=== PATIENT | female | born 1965 | race Caucasian/White ===

== ENCOUNTER → 2016-11-11 | Outpatient (CLI) | payer OTHER ==
[~2016-11-11] MED LIST: /TAMS4CA PO; ALBU0.084 IN; ATOR1TAB19 PO; CIPR500T89 PO; ESCITALOPRAM PO; IBUP200C PO; LEVO500T PO; LISI10TA2 PO; LISI20TA PO; NAPR500T2 PO; PERCOCET OR; PERCOCET PO; PRIS100T PO; albuterol nebulizer INH
--- NOTE | 2016-11-11 15:49 | REPMRS ---
Patient History The patient states she had a clinical breast exam in 11/2016. Patient is postmenopausal and had first child at age 31. Family history of colorectal cancer in mother at age 48 and breast cancer in maternal cousin under age 50. Digital Woman Screen Mammo: November 11, 2016 - Exam #: [id number] Bilateral CC and MLO view(s) were taken. Technologist: Nasima Barriga Technologist Prior study comparison: October 28, 2015, digital woman screen mammo performed at [facility] to [facility]. May 02, 2009, digital bilateral screening mammo performed at [facility] to [facility]. FINDINGS: There are scattered fibroglandular densities. There has been no change in the appearance of the mammogram from the prior studies. There is a mild amount of scattered fibroglandular density which is fairly symmetric. There is no interval development of dominant mass, architectural distortion, or clustered microcalcification suggestive of malignancy. ASSESSMENT: BI-RADS/ACR category 1 mammogram. Negative. Recommendation Routine screening mammogram in 1 year (for women over age 40). This mammogram was interpreted with the aid of an FDA-approved computer-aided dectection system. Electronically Signed By: Rashel Villegas MD 11/11/16 [id number]
== END ==
LOC: M WHC 14:57
PROVIDERS: ATTEND Nurse Practitioner Family
DX: Z12.31 Encounter for screening mammogram for malignant neoplasm of breast (principal)

== ENCOUNTER → 2017-05-26 | Outpatient (CLI) | payer OTHER ==
[~2017-05-26] MED LIST changes: +CIPR-249 PO; -CIPR500T89 PO
[2017-05-26 13:27] LABS: ANION GAP 6 MEQ/L (8-16); BLOOD UREA NITROGEN 12 MG/DL (7-18); CALCIUM LEVEL 9.3 MG/DL (8.5-10.1); CARBON DIOXIDE LEVEL 30 MEQ/L (21-32); CHLORIDE LEVEL 104 MEQ/L (98-107); CREATININE FOR GFR 0.87 MG/DL (0.55-1.02); GLOMERULAR FILTRATION RATE > 60.0 (>51); GLUCOSE, FASTING 188 MG/DL (70-105); POTASSIUM SERUM 4.3 MEQ/L (3.5-5.1); SODIUM LEVEL 140 MEQ/L (136-145)
== END ==
LOC: M SMT 08:35
PROVIDERS: ATTEND Nurse Practitioner Women's Health
DX: R31.29 Other microscopic hematuria (principal)

== ENCOUNTER → 2017-07-04 | Outpatient (REF) | payer OTHER | LOC: M SMT 16:39 | PROVIDERS: ATTEND Nurse Practitioner Women's Health | DX: R31.29 Other microscopic hematuria (principal) ==

== ENCOUNTER → 2017-09-30 | Outpatient (CLI) | payer OTHER | LOC: M SMT 13:58 | DX: N20.0 Calculus of kidney (principal) | CPT/HCPCS: 74000 ==

== ENCOUNTER → 2017-11-15 | Outpatient (CLI) | payer OTHER ==
[2017-11-15 18:01] LABS: PTH INTACT 81.3 PG/ML (18.5-88.0)
[2017-11-15 18:46] LABS: ALBUMIN 3.9 GM/DL (3.2-5.2); ALKALINE PHOSPHATASE 115 U/L (45-117); ALT/SGPT 29 U/L (12-78); ANION GAP 10 MEQ/L (8-16); AST/SGOT 15 U/L (7-37); BILIRUBIN,TOTAL 0.3 MG/DL (0.2-1.0); BLOOD UREA NITROGEN 11 MG/DL (7-18); CALCIUM LEVEL 9.2 MG/DL (8.5-10.1); CARBON DIOXIDE LEVEL 30 MEQ/L (21-32); CHLORIDE LEVEL 100 MEQ/L (98-107); CREATININE FOR GFR 0.95 MG/DL (0.55-1.30); GLOMERULAR FILTRATION RATE > 60.0 (>51); GLUCOSE, FASTING 201 MG/DL (70-100); POTASSIUM SERUM 3.4 MEQ/L (3.5-5.1); SODIUM LEVEL 140 MEQ/L (136-145); TOTAL PROTEIN 6.9 GM/DL (6.4-8.2)
== END ==
LOC: M SMT 15:38
DX: N20.0 Calculus of kidney (principal)
CPT/HCPCS: 80053

== ENCOUNTER → 2018-03-06 | Outpatient (REF) | payer OTHER ==
[2018-03-06 18:33] LABS: AMORPHOUS SEDIMENT SMALL (NEGATIVE); BACTERIA, URINE AUTO NEGATIVE (NEGATIVE); MUCUS, URINE SMALL (NEGATIVE); RBC, URINE AUTO 108 /HPF (0-3); SQUAMOUS EPITHELIAL CELL UR AU 0 /HPF (0-6); WBC, URINE AUTO 39 /HPF (0-3)
== END ==
LOC: M SMT 17:02
DX: Z01.818 Encounter for other preprocedural examination (principal); N20.0 Calculus of kidney

== ENCOUNTER → 2018-03-17 | Outpatient (CLI) | payer OTHER | LOC: M EKG 14:53 | DX: Z01.818 Encounter for other preprocedural examination (principal); R03.0 Elevated blood-pressure reading, without diagnosis of hypertension; E78.00 Pure hypercholesterolemia, unspecified; E11.9 Type 2 diabetes mellitus without complications ==

== ENCOUNTER 2018-03-23 07:39 | Day surgery (SDC) | payer OTHER ==
[2018-03-23] MEDS ORDERED: LR 1,000 ML IV (08:30)
[2018-03-23 09:20] LABS: BEDSIDE GLUCOSE 162 MG/DL (70-105)
[2018-03-23] MEDS ORDERED: LIDOCAINE 2% INJ 100 MG/5 ML SDV (FOR ANES.) As Ordered (09:59)
[2018-03-23] MEDS ORDERED: KETAMINE HCL 200 MG/20 ML VIAL As Ordered (09:59)
[2018-03-23] MEDS ORDERED: MIDAZOLAM INJ 2 MG/2 ML VIAL (J2250) As Ordered (09:59)
[2018-03-23] MEDS ORDERED: ONDANSETRON 4MG/2ML VIAL (J2405) As Ordered (09:59)
[2018-03-23] MEDS ORDERED: fentaNYL 100 MCG/2 ML INJECTION (J3010) As Ordered (09:59)
[2018-03-23] MEDS ORDERED: PROPOFOL 200 MG/20 ML VIAL As Ordered (09:59)
== END 2018-03-23 12:55 | disposition home or self-care (01) ==
LOC: M SDC 07:39
DX: I11.9 Hypertensive heart disease without heart failure (principal); J45.909 Unspecified asthma, uncomplicated; E11.9 Type 2 diabetes mellitus without complications; K57.30 Diverticulosis of large intestine without perforation or abscess without bleeding; M17.0 Bilateral primary osteoarthritis of knee; M54.9 Dorsalgia, unspecified; F41.9 Anxiety disorder, unspecified; Z88.8 Allergy status to other drugs, medicaments and biological substances; Z79.899 Other long term (current) drug therapy; Z79.84 Long term (current) use of oral hypoglycemic drugs; Z87.891 Personal history of nicotine dependence; Z90.710 Acquired absence of both cervix and uterus
CPT/HCPCS: 50590

== ENCOUNTER 2018-03-24 20:03 | Observation (INO) | payer OTHER ==
[2018-03-24 20:47] LABS: BASO % 0.3 % (0.0-1.0); EOS % 0.1 % (0.0-3.0); HEMOGLOBIN 12.5 g/dl (12.0-15.5); IMMATURE GRANULOCYTE % 0.5 % (0-3.0); LYMPH # 0.6 10^3/uL (1.5-4.5); LYMPH % 4.2 % (24.0-44.0); MEAN CORPUSCULAR HEMOGLOBIN 27.8 pg (27.0-33.0); MEAN CORPUSCULAR HGB CONC 32.9 g/dl (32.0-36.5); MEAN CORPUSCULAR VOLUME 84.4 fl (80.0-96.0); MONO # 0.4 10^3/uL (0.0-0.8); MONO % 2.7 % (0.0-5.0); NEUTROPHILS # 13.2 10^3/uL (1.8-7.7); NEUTROPHILS % 92.2 % (36.0-66.0); PLATELET COUNT, AUTOMATED 322 10^3/uL (150-450); RED CELL DISTRIBUTION WIDTH 13.9 % (11.5-14.5); WHITE BLOOD COUNT 14.3 10^3/uL (4.0-10.0)
[2018-03-24 21:01] LABS: KETONE, URINE AUTO RFX NEGATIVE (NEGATIVE); MUCUS, URINE RFX SMALL (NEGATIVE); NITRITE, URINE AUTO RFX NEGATIVE (NEGATIVE); RBC, URINE AUTO RFX 19 /HPF (0-3); SQUAM EPITHELIAL CELL UR AURFX 0 /HPF (0-6)
[2018-03-24 21:03] LABS: LEUKOCYTE ESTERASE UR AUTO RFX TRACE (NEGATIVE); WBC, URINE AUTO RFX 23 /HPF (0-3)
[2018-03-24 21:06] LABS: ANION GAP 6 MEQ/L (8-16); BLOOD UREA NITROGEN 14 MG/DL (7-18); C REACTIVE PROTEIN QUANTITATIV 4.25 MG/DL (0.00-0.30); CALCIUM LEVEL 9.1 MG/DL (8.5-10.1); CARBON DIOXIDE LEVEL 31 MEQ/L (21-32); CHLORIDE LEVEL 99 MEQ/L (98-107); CREATININE FOR GFR 1.34 MG/DL (0.55-1.30); GLUCOSE, FASTING 250 MG/DL (70-100); POTASSIUM SERUM 3.8 MEQ/L (3.5-5.1); SODIUM LEVEL 136 MEQ/L (136-145)
[2018-03-24] MEDS: NS 500 ML IV (22:15)
[2018-03-24] MEDS: ONDANSETRON 4MG/2ML VIAL (J2405) IV (22:15)
[2018-03-24] MEDS: MORPHINE 4 MG/ML 1ML VIAL/SYRINGE (J2270) IV (22:15)
[2018-03-24] MEDS ORDERED: ALBUTEROL 90 MCG/ACT 8GM HFA INHALER INH (23:30)
[2018-03-25] MEDS: D5W/0.45% SODIUM CHLORIDE 1,000 ML IV ×3 (00:54→18:43)
[2018-03-25] MEDS: PERCOCET 5MG/325MG TAB PO ×2 (01:10→06:11)
[2018-03-25] MEDS: MORPHINE 4 MG/ML 1ML VIAL/SYRINGE (J2270) IV ×2 (03:53)
[2018-03-25 06:28] LABS: HEMATOCRIT 35.8 % (36.0-47.0); HEMOGLOBIN 11.9 g/dl (12.0-15.5); MEAN CORPUSCULAR HEMOGLOBIN 27.9 pg (27.0-33.0); MEAN CORPUSCULAR HGB CONC 33.2 g/dl (32.0-36.5); MEAN CORPUSCULAR VOLUME 83.8 fl (80.0-96.0); PLATELET COUNT, AUTOMATED 281 10^3/uL (150-450); RED BLOOD COUNT 4.27 10^6/uL (4.00-5.40); RED CELL DISTRIBUTION WIDTH 14.2 % (11.5-14.5); WHITE BLOOD COUNT 13.6 10^3/uL (4.0-10.0)
[2018-03-25 06:44] LABS: ANION GAP 9 MEQ/L (8-16); BLOOD UREA NITROGEN 12 MG/DL (7-18); CALCIUM LEVEL 8.3 MG/DL (8.5-10.1); CARBON DIOXIDE LEVEL 29 MEQ/L (21-32); CHLORIDE LEVEL 99 MEQ/L (98-107); CREATININE FOR GFR 1.31 MG/DL (0.55-1.30); GLOMERULAR FILTRATION RATE 45.2 (>51); GLUCOSE, FASTING 188 MG/DL (70-100); POTASSIUM SERUM 3.8 MEQ/L (3.5-5.1); SODIUM LEVEL 137 MEQ/L (136-145)
[2018-03-25 09:11] LABS: BEDSIDE GLUCOSE 177 MG/DL (70-105)
[2018-03-25] MEDS: hydroCHLOROthiazide 25 MG TAB PO (09:49)
[2018-03-25] MEDS: ASPIRIN 81 MG CHEW TABLET PO (09:50)
[2018-03-25] MEDS: HYDROMORPHONE HCL 0.5 MG/ 0.5 ML SYRINGE (J1170 PER 1) IV (09:50)
[2018-03-25] MEDS: TAMSULOSIN 0.4 MG CAP PO (09:50)
[2018-03-25] MEDS: buPROPion **XL** TABLET 150MG (WELLBUTRIN XL) PO (09:50)
[2018-03-25] MEDS: ATORVASTATIN 20 MG TAB PO (09:50)
[2018-03-25] MEDS: metFORMIN (GLUCOPHAGE) 1000 MG TABLET PO ×2 (09:51→18:42)
[2018-03-25] MEDS: LISINOPRIL 5 MG TAB PO (09:51)
[2018-03-25] MEDS: ESCITALOPRAM OXALATE 10 MG TAB (LEXAPRO) PO (09:51)
[2018-03-25 12:23] LABS: BEDSIDE GLUCOSE 168 MG/DL (70-105)
[2018-03-25] MEDS: CIPROFLOXACIN/D5W 400 MG/200 ML BAG (J0744) As Ordered (16:25)
[2018-03-25] MEDS ORDERED: ROCURONIUM BROMIDE 50 MG/5 ML VIAL As Ordered (16:26)
[2018-03-25] MEDS ORDERED: METOCLOPRAMIDE INJ 10MG/2ML VIAL (J2765) As Ordered (16:26)
[2018-03-25] MEDS ORDERED: PROPOFOL 200 MG/20 ML VIAL As Ordered (16:26)
[2018-03-25] MEDS ORDERED: NEOSTIGMINE 10 MG/10 ML VIAL (J2710) As Ordered (16:26)
[2018-03-25] MEDS ORDERED: fentaNYL 100 MCG/2 ML INJECTION (J3010) As Ordered (16:26)
[2018-03-25] MEDS ORDERED: dexameTHASONE 4 MG/ML 1ML VIAL (J1100) As Ordered (16:26)
[2018-03-25] MEDS ORDERED: LIDOCAINE 2% INJ 100 MG/5 ML SDV (FOR ANES.) As Ordered (16:26)
[2018-03-25] MEDS ORDERED: MIDAZOLAM INJ 2 MG/2 ML VIAL (J2250) As Ordered (16:26)
[2018-03-25] MEDS ORDERED: ONDANSETRON 4MG/2ML VIAL (J2405) As Ordered (16:26)
[2018-03-25] MEDS ORDERED: GLYCOPYRROLATE INJ 0.2 MG/ML 2 ML VIAL As Ordered (16:26)
[2018-03-25] MEDS ORDERED: ePHEDrine SULFATE 25 MG/5 ML(5MG/ML) SYRINGE As Ordered ×2 (16:27→17:03)
[2018-03-25] MEDS ORDERED: PHENYLephrine HCL 500 MCG/5 ML (100MCG/ML) SYRINGE (J2370) As Ordered (16:28)
[2018-03-25] MEDS: CONRAY-60 60% 50ML VIAL (Q9961) As Ordered (16:30)
[2018-03-25] MEDS ORDERED: CONRAY-60 60% 50ML VIAL (Q9961) As Ordered (17:09)
[2018-03-25] MEDS ORDERED: SEVOFLURANE INHAL SOLN 250 ML BTL As Ordered (17:22)
[2018-03-25] MEDS ORDERED: NORCO, ANEXSIA 5/325MG TABLET (HYDROcodone/ACETAMINOPHEN) PO (18:15)
[2018-03-25] MEDS ORDERED: fentaNYL 100 MCG/2 ML INJECTION (J3010) IV (18:15)
[2018-03-25] MEDS: LR 1,000 ML IV (18:15)
[2018-03-26] MEDS: CIPROFLOXACIN 500 MG TAB PO (05:55)
[2018-03-26] MEDS: hydroCHLOROthiazide 25 MG TAB PO (08:16)
[2018-03-26] MEDS: ATORVASTATIN 20 MG TAB PO (08:16)
[2018-03-26] MEDS: LISINOPRIL 5 MG TAB PO (08:16)
[2018-03-26] MEDS: metFORMIN (GLUCOPHAGE) 1000 MG TABLET PO (08:16)
[2018-03-26] MEDS: ASPIRIN 81 MG CHEW TABLET PO (08:16)
[2018-03-26] MEDS: TAMSULOSIN 0.4 MG CAP PO (08:16)
[2018-03-26] MEDS: ESCITALOPRAM OXALATE 10 MG TAB (LEXAPRO) PO (08:17)
[2018-03-26] MEDS: buPROPion **XL** TABLET 150MG (WELLBUTRIN XL) PO (08:17)
[2018-03-26] MEDS: PERCOCET 5MG/325MG TAB PO (08:20)
== END 2018-03-26 09:10 | disposition home or self-care (01) ==
LOC: M MSPAV 03-25 01:06 → M ED 20:03 → M ED INP 22:34
DX: N20.1 Calculus of ureter (principal); E88.81 Metabolic syndrome and other insulin resistance; I10 Essential (primary) hypertension; E11.9 Type 2 diabetes mellitus without complications; J45.909 Unspecified asthma, uncomplicated; F41.9 Anxiety disorder, unspecified; F32.9 Major depressive disorder, single episode, unspecified; Z79.82 Long term (current) use of aspirin; Z79.899 Other long term (current) drug therapy
CPT/HCPCS: 52352

== ENCOUNTER 2018-03-27 12:04 | Day surgery (SDC) | payer OTHER ==
[2018-03-27] MEDS: ONDANSETRON 4MG/2ML VIAL (J2405) IV ×5 (13:18)
[2018-03-27] MEDS: MORPHINE 4 MG/ML 1ML VIAL/SYRINGE (J2270) IV ×5 (13:18)
[2018-03-27 13:25] LABS: BASO % 0.3 % (0.0-1.0); EOS # 0.2 10^3/uL (0.0-0.50); HEMATOCRIT 37.2 % (36.0-47.0); HEMOGLOBIN 12.3 g/dl (12.0-15.5); IMMATURE GRANULOCYTE % 0.6 % (0-3.0); LYMPH % 6.4 % (24.0-44.0); MEAN CORPUSCULAR HEMOGLOBIN 27.8 pg (27.0-33.0); MEAN CORPUSCULAR HGB CONC 33.1 g/dl (32.0-36.5); MONO # 1.2 10^3/uL (0.0-0.8); MONO % 7.6 % (0.0-5.0); NEUTROPHILS # 12.7 10^3/uL (1.8-7.7); NEUTROPHILS % 84.1 % (36.0-66.0); PLATELET COUNT, AUTOMATED 322 10^3/uL (150-450); RED BLOOD COUNT 4.43 10^6/uL (4.00-5.40); RED CELL DISTRIBUTION WIDTH 14.4 % (11.5-14.5); WHITE BLOOD COUNT 15.1 10^3/uL (4.0-10.0)
[2018-03-27 13:38] LABS: AMORPHOUS SEDIMENT RFX SMALL (NEGATIVE); KETONE, URINE AUTO RFX NEGATIVE (NEGATIVE); LEUKOCYTE ESTERASE UR AUTO RFX NEGATIVE (NEGATIVE); MUCUS, URINE RFX SMALL (NEGATIVE); NITRITE, URINE AUTO RFX NEGATIVE (NEGATIVE); RBC, URINE AUTO RFX TNTC /HPF (0-3); SPECIFIC GRAVITY UR AUTO RFX 1.017 (1.002-1.035); SQUAM EPITHELIAL CELL UR AURFX 1 /HPF (0-6); WBC, URINE AUTO RFX 6 /HPF (0-3)
[2018-03-27 13:39] LABS: ANION GAP 10 MEQ/L (8-16); BLOOD UREA NITROGEN 18 MG/DL (7-18); CALCIUM LEVEL 9.3 MG/DL (8.5-10.1); CARBON DIOXIDE LEVEL 30 MEQ/L (21-32); CHLORIDE LEVEL 97 MEQ/L (98-107); CREATININE FOR GFR 1.22 MG/DL (0.55-1.30); GLOMERULAR FILTRATION RATE 49.1 (>51); GLUCOSE, FASTING 145 MG/DL (70-100); POTASSIUM SERUM 3.4 MEQ/L (3.5-5.1); SODIUM LEVEL 137 MEQ/L (136-145)
[2018-03-27] MEDS: KETOROLAC 30 MG/ML VIAL (J1885) IV ×5 (14:36)
[2018-03-27] MEDS ORDERED: MORPHINE 4 MG/ML 1ML VIAL/SYRINGE (J2270) IV ×5 (19:45)
[2018-03-27] MEDS ORDERED: ONDANSETRON 4MG/2ML VIAL (J2405) IV ×5 (19:45)
[2018-03-27] MEDS ORDERED: oxyCODONE 5MG TAB PO ×5 (19:45)
[2018-03-27] MEDS: D5W/0.45% SODIUM CHLORIDE 1,000 ML IV ×5 (19:58)
[2018-03-27] MEDS: cefTRIAXone SOD 1 GM in D5W MINI-BAG PLUS 50 ML IV ×5 (19:58)
[2018-03-27] MEDS ORDERED: CONRAY-60 60% 50ML VIAL (Q9961) As Ordered ×5 (23:33)
[2018-03-27] MEDS ORDERED: LIDOCAINE 2% INJ 100 MG/5 ML SDV (FOR ANES.) As Ordered ×5 (23:39)
[2018-03-27] MEDS ORDERED: PROPOFOL 200 MG/20 ML VIAL As Ordered ×5 (23:39)
[2018-03-27] MEDS ORDERED: MIDAZOLAM INJ 2 MG/2 ML VIAL (J2250) As Ordered ×5 (23:39)
[2018-03-27] MEDS ORDERED: ONDANSETRON 4MG/2ML VIAL (J2405) As Ordered ×5 (23:39)
[2018-03-27] MEDS ORDERED: dexameTHASONE 4 MG/ML 1ML VIAL (J1100) As Ordered ×5 (23:39)
[2018-03-27] MEDS ORDERED: fentaNYL 100 MCG/2 ML INJECTION (J3010) As Ordered ×5 (23:42)
[2018-03-28] MEDS ORDERED: fentaNYL 100 MCG/2 ML INJECTION (J3010) As Ordered ×5 (00:45)
[2018-03-28] MEDS: LR 1,000 ML IV ×5 (01:05)
[2018-03-28] MEDS: NORCO, ANEXSIA 5/325MG TABLET (HYDROcodone/ACETAMINOPHEN) PO ×5 (01:11)
[2018-03-28] MEDS ORDERED: NORCO, ANEXSIA 5/325MG TABLET (HYDROcodone/ACETAMINOPHEN) As Ordered ×5 (01:12)
[2018-03-28] MEDS ORDERED: ONDANSETRON 4MG/2ML VIAL (J2405) IV ×5 (01:30)
[2018-03-28] MEDS ORDERED: fentaNYL 100 MCG/2 ML INJECTION (J3010) IV ×5 (01:30)
[2018-03-28] MEDS ORDERED: D5W/0.45% SODIUM CHLORIDE 1,000 ML IV ×5 (01:45)
[2018-03-28] MEDS ORDERED: ALBUTEROL 90 MCG/ACT 8GM HFA INHALER INH ×5 (02:45)
[2018-03-28 08:31] LABS: BEDSIDE GLUCOSE 171 MG/DL (70-105)
[2018-03-28] MEDS: ATORVASTATIN 20 MG TAB PO ×5 (08:38)
[2018-03-28] MEDS: ESCITALOPRAM OXALATE 10 MG TAB (LEXAPRO) PO ×5 (08:38)
[2018-03-28] MEDS: buPROPion **XL** TABLET 150MG (WELLBUTRIN XL) PO ×5 (08:39)
[2018-03-28] MEDS: metFORMIN (GLUCOPHAGE) 1000 MG TABLET PO ×5 (08:39)
[2018-03-28] MEDS: TAMSULOSIN 0.4 MG CAP PO ×5 (08:39)
[2018-03-28] MEDS: LISINOPRIL 5 MG TAB PO ×5 (09:00)
[2018-03-28] MEDS: hydroCHLOROthiazide 25 MG TAB PO ×5 (09:00)
[2018-04-08 00:12] LABS: CA Oxalate Dihy 15 % (.); COMMENT Note: (.); Ca Ox Monohydrate 40 % (.)
== END 2018-03-28 11:35 | disposition home or self-care (01) ==
LOC: M PED 03-28 02:00 → M SDC 03-28 11:35 → M ED 12:04 → M SDC 19:22
DX: N20.1 Calculus of ureter (principal); N20.0 Calculus of kidney; E78.5 Hyperlipidemia, unspecified; I10 Essential (primary) hypertension; E11.9 Type 2 diabetes mellitus without complications; F41.9 Anxiety disorder, unspecified; Z79.899 Other long term (current) drug therapy
CPT/HCPCS: 52356

== ENCOUNTER → 2018-03-27 | Outpatient (REF) | payer OTHER ==
[~2018-03-27] MED LIST changes: -/TAMS4CA PO; -ALBU0.084 IN; -ATOR1TAB19 PO; -CIPR-249 PO; +CONRAY-60 60% 50ML VIAL (Q9961) XX; -ESCITALOPRAM PO; -IBUP200C PO; -LEVO500T PO; -LISI10TA2 PO; -LISI20TA PO; -NAPR500T2 PO; -PERCOCET OR; -PERCOCET PO; -PRIS100T PO; -albuterol nebulizer INH
[2018-04-07 14:18] LABS: Ca Ox Monohydrate 42 % (.)
== END ==
LOC: M SMT 12:50
DX: N20.0 Calculus of kidney (principal)
CPT/HCPCS: 82360

== ENCOUNTER 2019-02-01 08:39 | Day surgery (SDC) | payer OTHER ==
[~2019-02-01] VITALS: Ht 167.6 cm; Wt 119.3 kg
[~2019-02-01 08:39] MED LIST changes: +ALBU0.084 IN; +ASPI81CH49 PO; +ASPI81TA26 PO; +ATOR1TAB19 PO; +ATOR1TAB21 PO; +BUPR300T34 PO; +CIPR-249 PO; +CIPR1TAB20 PO; -CONRAY-60 60% 50ML VIAL (Q9961) XX; +ESCI10TA2 PO; +ESCITALOPRAM PO; +FLOM0.4C39 PO; +HYDR50TAB PO; +IBUP200C PO; +LEVO500T PO; +LISI-542 PO; +LISI10TA2 PO; +LISI20TA PO; +METF10004 PO; +NAPR500T2 PO; +NS 1,000 ML IV ONE; +OXYC-517 PO; +OXYC1TAB23 OR; +OXYC1TAB23 PO; +PERC10TA26 PO; +PERCOCET PO; +POTA75TA2 PO; +PRIS100T PO; +PROAAER10 INH; +ZANT300T9 PO; +albuterol nebulizer INH
[2019-02-01] MEDS ORDERED: PROPOFOL 200 MG/20 ML VIAL As Ordered ONE (09:04)
[2019-02-01] MEDS ORDERED: LIDOCAINE 2% INJ 100 MG/5 ML SDV (FOR ANES.) As Ordered ONE (09:05)
[2019-02-01] MEDS ORDERED: fentaNYL 100 MCG/2 ML INJECTION (J3010) As Ordered ONE (09:05)
--- NOTE | 2019-02-01 10:07 | ROOR ---
Patient Name: Charlotte Muhammad Procedure Date: 02/01/2019 9:50 AM Date of : 1965 Age: 53 Room: [facility] Gender: Female Note Status: Finalized Procedure: Upper GI endoscopy Indications: Follow-up of esophageal reflux Providers: Parish Webster Jr, MD Referring MD: NAKITA CERRATO Requesting Provider: Medicines: Propofol per Anesthesia Complications: No immediate complications. Procedure: Pre-Anesthesia Assessment: - Prior to the procedure, a History and Physical was performed, and patient medications and allergies were reviewed. The patient is competent. The risks and benefits of the procedure and the sedation options and risks were discussed with the patient. All questions were answered and informed consent was obtained. Patient identification and proposed procedure were verified by the physician and the nurse in the pre-procedure area and in the procedure room. Mental Status Examination: alert and oriented. Airway Examination: normal oropharyngeal airway and neck mobility. Respiratory Examination: clear to auscultation. CV Examination: normal. ASA Grade Assessment: II - A patient with mild systemic disease. After reviewing the risks and benefits, the patient was deemed in satisfactory condition to undergo the procedure. The anesthesia plan was to use moderate sedation / analgesia (conscious sedation). Immediately prior to administration of medications, the patient was re-assessed for adequacy to receive sedatives. The heart rate, respiratory rate, oxygen saturations, blood pressure, adequacy of pulmonary ventilation, and response to care were monitored throughout the procedure. The physical status of the patient was re-assessed after the procedure. The Endoscope was introduced through the mouth, and advanced to the second part of duodenum. The upper GI endoscopy was accomplished without difficulty. The patient tolerated the procedure well. Findings: The upper third of the esophagus, middle third of the esophagus and lower third of the esophagus were normal. Diffuse mildly erythematous mucosa was found in the prepyloric region of the stomach. Biopsies were taken with a cold forceps for histology. Localized moderate inflammation characterized by congestion (edema), erythema and shallow ulcerations was found in the cardia. The duodenal bulb, first portion of the duodenum and second portion of the duodenum were normal. Impression: - Normal upper third of esophagus, middle third of esophagus and lower third of esophagus. - Erythematous mucosa in the prepyloric region of the stomach. Biopsied. - Bile gastritis. - Normal duodenal bulb, first portion of the duodenum and second portion of the duodenum. Recommendation: - Discharge patient to home (ambulatory). - Return to my office in 3 weeks. Pairsh Webster MD Parish Webster Jr, MD 02/01/2019 10:07:01 AM Electronically signed by Parish Webster Jr, MD Number of Addenda: 0 Note Initiated On: 02/01/2019 9:50 AM Estimated Blood Loss: Estimated blood loss: none.
[2019-02-01] MEDS ORDERED: GLYCOPYRROLATE INJ 0.2 MG/ML 2 ML VIAL As Ordered ONE (10:19)
--- NOTE | 2019-02-01 10:35 | ROOR ---
Patient Name: Charlotte Muhammad Procedure Date: 02/01/2019 9:50 AM Date of : 1965 Age: 53 Room: [facility] Gender: Female Note Status: Finalized Procedure: Colonoscopy Indications: Screening in patient at increased risk: Family history of 1st-degree relative with colorectal cancer Providers: Parish Webster Jr, MD Referring MD: NAKITA CERRATO Requesting Provider: Medicines: Propofol per Anesthesia Complications: No immediate complications. Procedure: Pre-Anesthesia Assessment: - Prior to the procedure, a History and Physical was performed, and patient medications and allergies were reviewed. The patient is competent. The risks and benefits of the procedure and the sedation options and risks were discussed with the patient. All questions were answered and informed consent was obtained. Patient identification and proposed procedure were verified by the physician and the nurse in the pre-procedure area and in the procedure room. Mental Status Examination: alert and oriented. Airway Examination: normal oropharyngeal airway and neck mobility. Respiratory Examination: clear to auscultation. CV Examination: normal. ASA Grade Assessment: II - A patient with mild systemic disease. After reviewing the risks and benefits, the patient was deemed in satisfactory condition to undergo the procedure. The anesthesia plan was to use moderate sedation / analgesia (conscious sedation). Immediately prior to administration of medications, the patient was re-assessed for adequacy to receive sedatives. The heart rate, respiratory rate, oxygen saturations, blood pressure, adequacy of pulmonary ventilation, and response to care were monitored throughout the procedure. The physical status of the patient was re-assessed after the procedure. The Colonoscope was introduced through the anus and advanced to the cecum, identified by appendiceal orifice and ileocecal valve. The colonoscopy was performed without difficulty. The patient tolerated the procedure well. The quality of the bowel preparation was adequate. Findings: The rectum, recto-sigmoid colon, cecum, appendiceal orifice and ileocecal valve appeared normal. Scattered small and large-mouthed diverticula were found in the descending colon, transverse colon and ascending colon. Multiple small and large-mouthed diverticula were found in the sigmoid colon. Impression: - The rectum, recto-sigmoid colon, cecum, appendiceal orifice and ileocecal valve are normal. - Diverticulosis in the descending colon, in the transverse colon and in the ascending colon. - Diverticulosis in the sigmoid colon. - No specimens collected. Recommendation: - Discharge patient to home (ambulatory). - Repeat colonoscopy in 5-10 years for screening purposes. Parish Webster MD Parish Webster Jr, MD 02/01/2019 10:35:05 AM Electronically signed by Parish Webster Jr, MD Number of Addenda: 0 Note Initiated On: 02/01/2019 9:50 AM Estimated Blood Loss: Estimated blood loss: none.
[2019-02-01 10:55] VITALS: BP 136/83
== END 2019-02-01 11:09 | disposition home or self-care (01) ==
LOC: M OPP 08:39
PROVIDERS: ATTEND Surgery
DX: K57.30 Diverticulosis of large intestine without perforation or abscess without bleeding (principal); K21.9 Gastro-esophageal reflux disease without esophagitis; K29.60 Other gastritis without bleeding; K31.89 Other diseases of stomach and duodenum; Z12.11 Encounter for screening for malignant neoplasm of colon; Z80.0 Family history of malignant neoplasm of digestive organs
CPT/HCPCS: 43239; 45378; 88305; J3010

== ENCOUNTER 2019-03-07 10:45 | Emergency (ER) | payer OTHER ==
[~2019-03-07] VITALS: Ht 167.6 cm; Wt 120.5 kg
[~2019-03-07 10:45] MED LIST changes: -NS 1,000 ML IV ONE
[2019-03-07] MEDS ORDERED: CARA1TAB6 PO (10:59)
[2019-03-07 12:04] LABS: BASO # 0.1 10^3/uL (0.0-0.2); BASO % 0.6 % (0.0-1.0); EOS # 0.3 10^3/uL (0.0-0.50); EOS % 3.2 % (0.0-3.0); HEMATOCRIT 36.8 % (36.0-47.0); HEMOGLOBIN 11.5 g/dl (12.0-15.5); LYMPH # 1.8 10^3/uL (1.5-4.5); LYMPH % 22.4 % (24.0-44.0); MEAN CORPUSCULAR HGB CONC 31.3 g/dl (32.0-36.5); MEAN CORPUSCULAR VOLUME 86.4 fl (80.0-96.0); MONO # 0.5 10^3/uL (0.0-0.8); MONO % 6.3 % (0.0-5.0); NEUTROPHILS # 5.2 10^3/uL (1.8-7.7); PLATELET COUNT, AUTOMATED 309 10^3/uL (150-450); RED BLOOD COUNT 4.26 10^6/uL (4.00-5.40); WHITE BLOOD COUNT 7.8 10^3/uL (4.0-10.0)
[2019-03-07] MEDS ORDERED: ASPIRIN 81 MG CHEW TABLET PO ONE (12:15)
[2019-03-07] MEDS ORDERED: IPRATROPIUM 0.5MG/ALBUTEROL 2.5MG INH SOL UD 3ML (DUONEB)(J7620) NEB ONE (12:15)
--- NOTE | 2019-03-07 13:06 | REP ---
Chest two views HISTORY: Cough Comparison: 08/22/1970 The lungs are clear. The heart is normal in size. The pulmonary vasculature is normal in appearance. The bony structure is intact. IMPRESSION: No acute disease. Electronically Signed by Connor Carlton MD 03/07/2019 12:57 P
[2019-03-07 13:08] LABS: VENOUS BASE EXCESS 1.4 (-2.0-2.0); VENOUS HCO3 27.1 MEQ/L (23.0-27.0); VENOUS O2 SATURATION 92.7 % (60.0-80.0); VENOUS PARTIAL PRESSURE CO2 46.9 mmHg (38.0-50.0); VENOUS PARTIAL PRESSURE O2 65.3 mmHg (30.0-50.0); VENOUS PH 7.379 UNITS (7.330-7.430); VENOUS STANDARD HCO3 25.6 MEQ/L; VENOUS TOTAL CO2 28.5 MEQ/L (24.0-28.0)
[2019-03-07 13:09] LABS: ALBUMIN 3.6 GM/DL (3.2-5.2); ALT/SGPT 30 U/L (12-78); BILIRUBIN,TOTAL 0.3 MG/DL (0.2-1.0); BLOOD UREA NITROGEN 14 MG/DL (7-18); CALCIUM LEVEL 9.1 MG/DL (8.5-10.1); CARBON DIOXIDE LEVEL 28 MEQ/L (21-32); CHLORIDE LEVEL 109 MEQ/L (98-107); CREATININE FOR GFR 0.86 MG/DL (0.55-1.30); GLOMERULAR FILTRATION RATE > 60.0 (>51); GLUCOSE, FASTING 90 MG/DL (70-100); SODIUM LEVEL 143 MEQ/L (136-145); TOTAL PROTEIN 6.6 GM/DL (6.4-8.2)
[2019-03-07 13:22] LABS: INR 0.99; PROTHROMBIN TIME 13.2 SECONDS (12.1-14.4)
[2019-03-07 13:25] LABS: D-DIMER QUANT 410.67 ng/ml (<500)
[2019-03-07 13:47] LABS: ALBUMIN 3.8 GM/DL (3.2-5.2); ALT/SGPT 35 U/L (12-78); BILIRUBIN,DIRECT < 0.1 MG/DL (0.0-0.2); BILIRUBIN,TOTAL 0.3 MG/DL (0.2-1.0); CPK CREATINE PHOSPHOKINASE 73 U/L (26-192); MB/CK RELATIVE INDEX 3.01 (< OR =4); NT-PRO BNP 222 PG/ML (<125); TOTAL PROTEIN 6.6 GM/DL (6.4-8.2); TROPONIN I 0.02 NG/ML (< 0.10)
[2019-03-07 14:30] VITALS: BP 127/59
--- NOTE | 2019-03-07 20:07 | ECGEPIP ---
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
== END 2019-03-07 14:42 | disposition home or self-care (01) ==
LOC: M ED 10:45
DX: I10 Essential (primary) hypertension (principal); Z79.899 Other long term (current) drug therapy; Z88.8 Allergy status to other drugs, medicaments and biological substances; Z87.891 Personal history of nicotine dependence

== ENCOUNTER → 2019-03-09 | Outpatient (REF) | payer OTHER ==
[~2019-03-09] MED LIST changes: +CARA1TAB6 PO
[2019-03-09 15:05] LABS: CREATININE, URINE 74.8 MG/DL; MALB URINE SIEMENS 29.2 MG/L
== END ==
LOC: M LAB REF 13:58
PROVIDERS: ATTEND Nurse Practitioner Family
DX: N39.9 Disorder of urinary system, unspecified (principal)

== ENCOUNTER → 2019-03-12 | Outpatient (CLI) | payer OTHER ==
--- NOTE | 2019-03-12 11:09 | REP ---
Right upper quadrant sonography: History: Right upper quadrant pain. Comparison CT study March 27, 2018. Sonographic findings: Scanning through the right upper quadrant of the abdomen demonstrates a large calculus in the neck of the gallbladder. No tenderness to scanning is seen. There is sludge in the gallbladder lumen as well. Gallbladder wall is not visibly thickened. These findings correlate with the CT findings from March of 2018. Common bile duct is normal measuring 0.5 cm in greatest diameter. The liver is very echodense consistent with significant fatty infiltration. It is poorly penetrated and quite suboptimally visualized as a result. Limited views of the pancreas show no abnormality. Scan quality is inhibited by patient body habitus as well. No right renal abnormality is observed. The right kidney measures 10.7 x 5.3 x 3.9 cm. Normal caliber aorta is seen. Impression: Fatty infiltration of the liver. Poor visualization of the liver parenchyma as a result. Cholelithiasis with a large stone in the neck of the gallbladder and mildly dilated gallbladder. Sludge. Normal CBD. Electronically Signed by Adrien Villegas MD 03/12/2019 03:40 P
== END ==
LOC: M RAD 07:48
PROVIDERS: ATTEND Nurse Practitioner
DX: K76.0 Fatty (change of) liver, not elsewhere classified (principal); K80.20 Calculus of gallbladder without cholecystitis without obstruction

== ENCOUNTER → 2019-08-22 | Outpatient (CLI) | payer OTHER ==
[~2019-08-22] MED LIST changes: +BUSP10TA PO; +CLOP75TA2 PO; +LISI10TA4 PO; +NITR4TASL SL
[2019-08-25 00:16] LABS: Lyme Disease IgG/IgM Antibodie <0.91 ISR (0.00-0.90); Lyme Disease IgM Ab Quantitati <0.80 index (0.00-0.79)
== END ==
LOC: M LAB 14:48
PROVIDERS: ATTEND Internal Medicine Cardiovascular Disease
DX: I49.9 Cardiac arrhythmia, unspecified (principal)

== ENCOUNTER 2019-12-04 06:20 | Emergency (ER) | payer OTHER ==
[~2019-12-04] VITALS: Ht 167.6 cm; Wt 119.1 kg
[~2019-12-04 06:20] MED LIST changes: -BUPR300T34 PO; +BUPR300T92 PO
[2019-12-04] MEDS ORDERED: ACETAMINOPHEN 500 MG TAB PO ONE (07:15)
[2019-12-04] MEDS ORDERED: LIDOCAINE 5% (LIDODERM) PATCH TD ONE (07:15)
[2019-12-04 07:17] LABS: BASO # 0.1 10^3/uL (0.0-0.2); BASO % 0.6 % (0.0-1.0); EOS # 0.2 10^3/uL (0.0-0.5); EOS % 2.7 % (0.0-3.0); HEMATOCRIT 40.5 % (36.0-47.0); HEMOGLOBIN 12.7 g/dl (12.0-15.5); LYMPH # 1.6 10^3/uL (1.5-5.0); LYMPH % 20.6 % (24.0-44.0); MEAN CORPUSCULAR HGB CONC 31.4 g/dl (32.0-36.5); MEAN CORPUSCULAR VOLUME 86.2 fl (80.0-96.0); MONO # 0.5 10^3/uL (0.0-0.8); MONO % 6.1 % (0.0-5.0); NEUTROPHILS # 5.5 10^3/uL (1.5-8.5); NEUTROPHILS % 69.6 % (36.0-66.0); PLATELET COUNT, AUTOMATED 318 10^3/uL (150-450); WHITE BLOOD COUNT 7.9 10^3/uL (4.0-10.0)
[2019-12-04 07:31] LABS: CK-MB VALUE MASS < 1.0 NG/ML (<3.6); CPK CREATINE PHOSPHOKINASE 51 U/L (26-192); MB/CK RELATIVE INDEX 1.96 (< OR =4); TROPONIN I < 0.02 NG/ML (< 0.10)
--- NOTE | 2019-12-04 07:56 | REP ---
Chest x-ray: Two views. History: Cardiac history. The left back pain. Comparison study: March 07, 2019. Findings: The lungs are symmetrically aerated and clear. The pleural angles are sharp. Heart is not enlarged. Coronary artery stent material is visible overlying the heart. There are degenerative changes in the thoracic spine. Pulmonary vasculature is not increased. No infiltrate is seen. Impression: Status post coronary artery stenting. Degenerative changes in the thoracic spine. No active cardiopulmonary disease. Electronically Signed by Adrien Villegas MD 12/04/2019 07:47 A
[2019-12-04] MEDS ORDERED: ISOVUE-370 76% 100ML VIAL (Q9967) As Ordered ONE (08:27)
--- NOTE | 2019-12-04 09:01 | REP ---
CT PULMONARY ANGIOGRAM: With IV contrast. HISTORY: Pleuritic left upper back pain. COMPARISON STUDIES: No comparison chest CT. CONTRAST DOSE: 75 mL of Isovue [address] TECHNIQUE: Helical scanning is acquired and overlapping 1.5 mm and contiguous 3 mm axial images are reformatted. In addition, maximum intensity projection and multiplanar re-formation images are generated in sagittal and coronal imaging projections. CT PULMONARY ANGIOGRAPHIC FINDINGS: There is good opacification of the pulmonary arterial tree. There is no filling defect or vessel cutoff in the pulmonary arterial tree to suggest pulmonary embolism. There is no evidence of aortic aneurysm or dissection. There is some vascular calcification in the aortic arch and great vessel origins. No pleural or pericardial effusion is seen. There is no evidence of hilar or mediastinal mass or adenopathy. There is fairly prominent discogenic spurring in the thoracic spine. No bony destructive lesion is appreciated. There is coronary artery stent material visible. Fatty infiltration of the liver is seen and calcific material is noted in the gallbladder at the bottom edge of the imaging field of view suggesting cholelithiasis. This is unchanged from comparison abdomen CT study March 27, 2018. The visualized upper abdominal structures are otherwise unremarkable. No adrenal lesion is seen. There is no evidence of pulmonary infiltrate, significant atelectasis, pulmonary mass, or significant nodule. IMPRESSION: No CT evidence of pulmonary embolus. Status post coronary artery stent placement. Cholelithiasis. Fatty infiltration of the liver. Mild vascular calcification. Otherwise no acute disease. Electronically Signed by Adrien Villegas MD 12/04/2019 05:53 P
[2019-12-04] MEDS ORDERED: LIDO5DIS41 TOP (09:12)
[2019-12-04 09:24] VITALS: BP 133/65
[2019-12-04] MEDS ORDERED: **NOTE PATIENT COMMENT** MISC XX SCH (21:00)
--- NOTE | 2019-12-06 06:09 | ECGEPIP ---
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
== END 2019-12-04 09:35 | disposition home or self-care (01) ==
LOC: M ED 06:20
DX: M51.34 Other intervertebral disc degeneration, thoracic region (principal); R00.1 Bradycardia, unspecified; K76.0 Fatty (change of) liver, not elsewhere classified; K80.20 Calculus of gallbladder without cholecystitis without obstruction; E11.9 Type 2 diabetes mellitus without complications; I11.9 Hypertensive heart disease without heart failure; E78.5 Hyperlipidemia, unspecified; J45.909 Unspecified asthma, uncomplicated; F41.9 Anxiety disorder, unspecified; F33.9 Major depressive disorder, recurrent, unspecified; Z95.5 Presence of coronary angioplasty implant and graft; Z88.8 Allergy status to other drugs, medicaments and biological substances; Z79.82 Long term (current) use of aspirin; Z79.84 Long term (current) use of oral hypoglycemic drugs; Z79.899 Other long term (current) drug therapy
CPT/HCPCS: 36415; 71046; 71275; 80047; 82550; 82553; 84484; 85025; 85379; 93005; 99284; Q9967

== ENCOUNTER → 2019-12-18 | Outpatient (REF) | payer OTHER ==
[~2019-12-18] MED LIST changes: +LIDO5DIS41 TOP
[2019-12-18 14:24] LABS: BASO # 0.1 10^3/uL (0.0-0.2); BASO % 0.8 % (0.0-1.0); EOS # 0.2 10^3/uL (0.0-0.5); EOS % 2.5 % (0.0-3.0); HEMATOCRIT 42.9 % (36.0-47.0); HEMOGLOBIN 13.2 g/dl (12.0-15.5); LYMPH # 1.5 10^3/uL (1.5-5.0); LYMPH % 21.1 % (24.0-44.0); MEAN CORPUSCULAR HEMOGLOBIN 26.5 pg (27.0-33.0); MEAN CORPUSCULAR HGB CONC 30.8 g/dl (32.0-36.5); MEAN CORPUSCULAR VOLUME 86.1 fl (80.0-96.0); MONO # 0.4 10^3/uL (0.0-0.8); NEUTROPHILS % 70.3 % (36.0-66.0); PLATELET COUNT, AUTOMATED 328 10^3/uL (150-450); RED BLOOD COUNT 4.98 10^6/uL (4.00-5.40); WHITE BLOOD COUNT 7.1 10^3/uL (4.0-10.0)
[2019-12-18 14:39] LABS: HEMOGLOBIN A1c 7.9 %
[2019-12-18 14:54] LABS: ALT/SGPT 33 U/L (12-78); BILIRUBIN,TOTAL 0.3 MG/DL (0.2-1.0); BLOOD UREA NITROGEN 16 MG/DL (7-18); CALCIUM LEVEL 10.6 MG/DL (8.5-10.1); CARBON DIOXIDE LEVEL 28 MEQ/L (21-32); CHLORIDE LEVEL 104 MEQ/L (98-107); CREATININE FOR GFR 0.93 MG/DL (0.55-1.30); GLOMERULAR FILTRATION RATE > 60.0 (>51); GLUCOSE, FASTING 230 MG/DL (70-100); POTASSIUM SERUM 4.1 MEQ/L (3.5-5.1); RHEUMATOID FACTOR QUANT < 10.0 IU/ML (<15.0); SODIUM LEVEL 138 MEQ/L (136-145); TOTAL PROTEIN 7.4 GM/DL (6.4-8.2)
[2019-12-18 15:03] LABS: FOLATE 12.8 NG/ML; VITAMIN B12 LEVEL 288 PG/ML
[2019-12-18 15:05] LABS: ERYTHROCYTE SEDIMENTATION RATE 13 mm/hr (0-30)
[2019-12-20 14:24] LABS: ALBUMIN % 58.1 % (55.8-66.1); ALPHA-1-GLOBULIN % 4.6 % (2.9-4.9); ALPHA-1-GLOBULINS 0.34 GM/DL (0.17-0.41); ALPHA-2-GLOBULINS 0.81 GM/DL (0.42-0.99); ALPHA-2-GLOBULINS % 10.9 % (7.1-11.8); BETA-1-GLOBULINS 0.58 GM/DL (0.28-0.60); BETA-1-GLOBULINS % 7.8 % (4.7-7.2); BETA-2-GLOBULINS 0.46 GM/DL (0.19-0.55); BETA-2-GLOBULINS % 6.2 % (3.2-6.5); GAMMA GLOBULIN % 12.4 % (11.1-18.8); GAMMA GLOBULINS 0.92 GM/DL (0.65-1.58)
== END ==
LOC: M LABNEURO 12:50
PROVIDERS: ATTEND Psychiatry & Neurology Neurology
DX: G62.9 Polyneuropathy, unspecified (principal)

== ENCOUNTER → 2020-01-04 | Outpatient (CLI) | payer OTHER ==
--- NOTE | 2020-01-04 15:28 | REP ---
MRI cervical spine without contrast: History: Pain in the neck and scapular region, numbness going down the left arm. Comparison cervical spine radiographs December 10, 2019. Technique: Sagittal and axial T1 and T2-weighted scans are acquired in the usual fashion with and without fat saturation. Sequences include spin echo, turbo spin-echo, and STIR imaging sequences. MRI findings: There is straightening of the normal cervical lordosis. Cervical vertebral body heights are preserved. No bony destructive lesion is seen. Large anteriorly projecting discogenic osteophytes are formed at the C4-5, C 5-6, and C6-7 disc levels. Particularly at C4-5 as seen on the radiographs. There is no evidence of marrow edema or ligament disruption. The cervical cord is normal in coarse, caliber and signal intensity on T1 and T2-weighted scans. Craniocervical junction is unremarkable. Axial and sagittal images of C2-3 demonstrate minimal central disc bulging. No other finding. At C3-4, there is mild disc narrowing and diffuse disc bulging effaces the ventral subarachnoid space. Minimal uncovertebral spurring is present on the right. Canal size is borderline. At the C4-5, there is mild diffuse disc bulging. The canal is borderline in size with midline AP dimension of the thecal sac 10 mm at the C4-5 level. Neural foramina appear to be adequate. At C5-6, there is mild degenerative disc narrowing. There is a left posterior disc protrusion with associated osteophyte formation. This flattens the left ventral margin of the cord. The remainder of the disc margin shows some diffuse bulging and there is mild central canal stenosis as a result of these factors. Midline AP dimension of the thecal sac at C5-6 is 9.3 mm. The CSF signal is effaced from the thecal sac on T2-weighted scans at this level. There is mild left-sided uncovertebral spurring and foraminal narrowing. At C6-C7, there is a right posterior small focal disc protrusion seen on axial T2-weighted images. No foraminal narrowing is seen. Canal size is borderline. At C7-T1, there is a left posterior moderate-sized focal disc protrusion effacing the left ventral lateral margin of the cord and with associated osteophyte formation, producing neural foraminal narrowing on the left. At T1-T2, there is no abnormality. At T2-T3, there is left-sided ligamentum flavum and facet hypertrophy effacing the dorsal lateral aspect of the thecal sac. No cord compression is seen. Impression: The dominant abnormalities in the cervical spine are a left posterior and left foraminal disc protrusion at C7-T1, a left posterior and foraminal disc protrusion at C5-6, and there very tiny right paracentral focal disc protrusion at C6-7. Canal size is borderline. Electronically Signed by Adrien Villegas MD 01/04/2020 04:11 P
--- NOTE | 2020-01-04 15:32 | REP ---
MRI thoracic spine without contrast: History: Neck pain and scapular area pain, numbness going down the left arm. Comparison is made with CT images of the chest from December 04, 2019. Technique: Sagittal and axial T1 and T2-weighted scans are acquired in the usual fashion with and without fat saturation. Sequences include spin echo, turbo spin-echo, and STIR imaging sequences. MRI findings: Thoracic vertebral body heights are preserved. Cortical and medullary bone signal intensity are normal. No fracture or collapse is seen. No paravertebral soft tissue lesion is seen. There is diffuse degenerative disc disease with multiple levels of Schmorl's nodes. The MR and CT images demonstrate fairly exuberant anterior discogenic osteophyte formation in the mid and lower thoracic spine vertically on the right. Exuberant discogenic spurring is seen in the cervical spine on C-spine series. On the left side, at the T2-3 facet joint level there is asymmetric osteoarthritis and spurring of the facet joints. This impinges on the dorsal lateral aspect of the thecal sac at the T2-3 level and CSF fluid signal intensity is effaced from the thecal sac at this level consistent with mild central canal stenosis. There is right posterior disc bulging at this level. No abnormal cord signal is seen. There is a right posterior disc protrusion at the T5-6 disc level which flattens the right ventral lateral margin of the thoracic cord. This is partially calcified and visible on reconstructed CT images. There is bilateral hypertrophic facet change at the T11-12 level subtly indenting the dorsal lateral margin of the thecal sac bilaterally. No cord compression is seen. Minimal disc bulging is seen at this level. No extra vertebral abnormality. Impression: 1. There is a right posterior disc protrusion at T5-6. 2. 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 3. Bilateral facet hypertrophy indents the dorsolateral thecal sac bilaterally at T11-12. Electronically Signed by Adrien Villegas MD 01/04/2020 04:11 P
== END ==
LOC: M PLARAD 13:21
PROVIDERS: ATTEND Psychiatry & Neurology Neurology
DX: M50.23 Other cervical disc displacement, cervicothoracic region (principal); R20.2 Paresthesia of skin; M50.222 Other cervical disc displacement at C5-C6 level; M50.223 Other cervical disc displacement at C6-C7 level; M51.24 Other intervertebral disc displacement, thoracic region; M51.34 Other intervertebral disc degeneration, thoracic region

== ENCOUNTER 2020-10-01 14:13 | Emergency (ER) | payer OTHER ==
[~2020-10-01] VITALS: Ht 167.6 cm; Wt 112.2 kg
[~2020-10-01 14:13] MED LIST changes: +ESCI10TA16 PO; -ESCI10TA2 PO
[2020-10-01] MEDS ORDERED: TIZA4CAP PO (14:28)
[2020-10-01] MEDS ORDERED: FARX1TAB3 PO (14:28)
[2020-10-01 15:30] LABS: BASO # 0.1 10^3/uL (0.0-0.2); BASO % 0.7 % (0.0-1.0); EOS # 0.3 10^3/uL (0.0-0.5); EOS % 3.5 % (0.0-3.0); HEMATOCRIT 41.9 % (36.0-47.0); HEMOGLOBIN 12.7 g/dl (12.0-15.5); LYMPH # 1.7 10^3/uL (1.5-5.0); LYMPH % 20.9 % (24.0-44.0); MEAN CORPUSCULAR HGB CONC 30.3 g/dl (32.0-36.5); MEAN CORPUSCULAR VOLUME 85.7 fl (80.0-96.0); MONO # 0.5 10^3/uL (0.0-0.8); MONO % 5.8 % (0.0-5.0); NEUTROPHILS # 5.7 10^3/uL (1.5-8.5); NEUTROPHILS % 68.5 % (36.0-66.0); PLATELET COUNT, AUTOMATED 292 10^3/uL (150-450); RED BLOOD COUNT 4.89 10^6/uL (4.00-5.40); WHITE BLOOD COUNT 8.3 10^3/uL (4.0-10.0)
--- NOTE | 2020-10-01 15:39 | REP ---
INDICATION: CHEST PAIN COMPARISON: 12/04/2019 TECHNIQUE: Portable AP view of the chest FINDINGS: The mediastinum and cardiac silhouette are stable and within normal limits for portable technique. The lung higgins are clear without acute consolidation, effusion, or pneumothorax. Skeletal structures are intact. IMPRESSION: No acute cardiopulmonary process appreciated. <Electronically signed by Jg Horta > 10/01/20 [id number]
[2020-10-01 15:42] LABS: INR 0.97; PARTIAL THROMBOPLASTIN TIME 27.9 SECONDS (24.2-38.5); PROTHROMBIN TIME 13.1 SECONDS (12.5-14.3)
[2020-10-01 16:10] LABS: ALBUMIN 3.6 GM/DL (3.2-5.2); ALT/SGPT 22 U/L (12-78); BILIRUBIN,DIRECT 0.1 MG/DL (0.0-0.2); BILIRUBIN,TOTAL 0.4 MG/DL (0.2-1.0); BLOOD UREA NITROGEN 12 MG/DL (7-18); CALCIUM LEVEL 9.8 MG/DL (8.5-10.1); CARBON DIOXIDE LEVEL 30 MEQ/L (21-32); CHLORIDE LEVEL 106 MEQ/L (98-107); CK-MB VALUE MASS 1.2 NG/ML (<3.6); CPK CREATINE PHOSPHOKINASE 51 U/L (26-192); CREATININE FOR GFR 0.87 MG/DL (0.55-1.30); GLOMERULAR FILTRATION RATE > 60.0 (>51); GLUCOSE, FASTING 101 MG/DL (70-100); LIPASE 201 U/L (73-393); MB/CK RELATIVE INDEX 2.35 (< OR =4); NT-PRO BNP 105 PG/ML (<125); POTASSIUM SERUM 3.9 MEQ/L (3.5-5.1); SODIUM LEVEL 139 MEQ/L (136-145); TOTAL PROTEIN 6.8 GM/DL (6.4-8.2); TROPONIN I < 0.02 NG/ML (< 0.10)
[2020-10-01 21:45] LABS: CK-MB VALUE MASS 1.2 NG/ML (<3.6); CPK CREATINE PHOSPHOKINASE 44 U/L (26-192); MB/CK RELATIVE INDEX 2.73 (< OR =4); TROPONIN I < 0.02 NG/ML (< 0.10)
--- NOTE | 2020-10-01 21:56 | ED PDOC ---
Post-Departure Follow-Up I received this patient's care from Dr. Polanco. The plan at the time of s/o was t o f/u on her repeat trop and EKG. GERARDO REYES MD Oct 01, 2020 21:56
[2020-10-01 22:18] VITALS: BP 119/55
--- NOTE | 2020-10-02 13:31 | ECGEPIP ---
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
--- NOTE | 2020-10-02 13:34 | ECGEPIP ---
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
== END 2020-10-01 22:26 | disposition home or self-care (01) ==
LOC: M ED 14:13
DX: R07.89 Other chest pain (principal); E11.9 Type 2 diabetes mellitus without complications; I10 Essential (primary) hypertension; Z95.5 Presence of coronary angioplasty implant and graft; Z79.899 Other long term (current) drug therapy; Z79.82 Long term (current) use of aspirin; Z79.01 Long term (current) use of anticoagulants; Z88.8 Allergy status to other drugs, medicaments and biological substances; Z87.891 Personal history of nicotine dependence

== ENCOUNTER → 2021-10-06 | Outpatient (CLI) | payer BC ==
[~2021-10-06] MED LIST changes: +FARX1TAB3 PO; -LISI-542 PO; +LISI-898 PO; +LISI10TA22 PO; -LISI10TA4 PO; +TIZA4CAP PO
--- NOTE | 2021-10-06 09:57 | REPMRS ---
Patient History The patient states she had a clinical breast exam in October 2021. Patient is postmenopausal and had first child at age 31. Family history of colorectal cancer at age 48 in mother, breast cancer under age 50 in maternal cousin. Tomosynthesis is performed. [place] breast density is a. [facility] lifetime risk of breast cancer 10.0%. Patient states no breast complaints today. Patient has signed MRS History Sheet. Digital Woman Screen Mammo: October 06, 2021 - Exam #: [id number] Bilateral CC and MLO view(s) were taken. Technologist: Nohemy Gandhi, Technologist Prior study comparison: November 11, 2016, digital woman screen mammo performed at [facility]. October 28, 2015, digital woman screen mammo performed at [facility]. FINDINGS: There are scattered fibroglandular densities. There is a fairly symmetric fibroglandular pattern in both breasts. There has been no interval development of masses, areas of architectural distortion or clusters of microcalcifications typical of malignancy. There is a stable well-defined nodule in the anterior central right breast. No significant changes when compared with prior studies. Assessment: BI-RADS/ACR category 2 mammogram. Benign Findings. Recommendation Routine screening mammogram of both breasts in 1 year (for women over age 40). This mammogram was interpreted with the aid of an FDA-approved computer-aided dectection system. Electronically Signed By: Sharif Cartagena MD 10/06/21 [id number]
== END ==
LOC: M WHC 08:19
PROVIDERS: ATTEND Nurse Practitioner Women's Health
DX: Z12.31 Encounter for screening mammogram for malignant neoplasm of breast (principal); Z78.0 Asymptomatic menopausal state; Z80.3 Family history of malignant neoplasm of breast

== ENCOUNTER → 2022-07-21 | Outpatient (CLI) | payer BC ==
[~2022-07-21] MED LIST changes: -LISI-898 PO; +LISI5TAB11 PO
[2022-07-21 18:55] LABS: ALBUMIN 3.9 GM/DL (3.2-5.2); ALT/SGPT 33 U/L (12-78); BILIRUBIN,TOTAL 0.6 MG/DL (0.2-1.0); BLOOD UREA NITROGEN 19 MG/DL (7-18); CARBON DIOXIDE LEVEL 30 MEQ/L (21-32); CHLORIDE LEVEL 105 MEQ/L (98-107); CHOLESTEROL LEVEL 143 MG/DL (<200); CHOLESTEROL RISK RATIO 3.864 (<5); CREATININE FOR GFR 0.82 MG/DL (0.55-1.30); GLOMERULAR FILTRATION RATE > 60.0 (>51); GLUCOSE, FASTING 96 MG/DL (70-100); HDL CHOLESTEROL 37 MG/DL (>40); HEMOGLOBIN A1c 5.3 %; LDL CHOLESTEROL 82 MG/DL (<100); NON-HDL-C 106 MG/DL; POTASSIUM SERUM 3.9 MEQ/L (3.5-5.1); SODIUM LEVEL 140 MEQ/L (136-145); TOTAL PROTEIN 7.1 GM/DL (6.4-8.2); TRIGLYCERIDES LEVEL 118 MG/DL (<150)
== END ==
LOC: M RAD 16:41
PROVIDERS: ATTEND Physician Assistant
DX: M17.11 Unilateral primary osteoarthritis, right knee (principal); E11.9 Type 2 diabetes mellitus without complications; E78.2 Mixed hyperlipidemia; I10 Essential (primary) hypertension

== ENCOUNTER → 2022-07-28 | Outpatient (CLI) | payer BC | LOC: M LAB 17:52 | PROVIDERS: ATTEND Internal Medicine Cardiovascular Disease | DX: I49.9 Cardiac arrhythmia, unspecified (principal) ==

== ENCOUNTER → 2022-11-23 | Outpatient (CLI) | payer BC ==
[2022-11-23 08:46] LABS: ALBUMIN 3.7 G/DL (3.2-5.2); ALKALINE PHOSPHATASE 77 U/L (46-116); ALT/SGPT 14 U/L (7.0-40); AST/SGOT 13 U/L (<34); BILIRUBIN,TOTAL 0.5 MG/DL (0.3-1.2); BLOOD UREA NITROGEN 20 MG/DL (9-23); CARBON DIOXIDE LEVEL 30 MMOL/L (20-31); CHLORIDE LEVEL 109 MMOL/L (98-107); CHOLESTEROL LEVEL 138 MG/DL (<200); CHOLESTEROL RISK RATIO 3.17 (<5); CREATININE FOR GFR 0.85 MG/DL (0.55-1.30); GLOMERULAR FILTRATION RATE > 60.0 (>51); GLUCOSE, FASTING 94 MG/DL (60-100); HDL CHOLESTEROL 43.5 MG/DL (>40); LDL CHOLESTEROL 78.5 MG/DL (<100); NON-HDL-C 95 MG/DL; POTASSIUM SERUM 4.2 MMOL/L (3.5-5.1); SODIUM LEVEL 143 MMOL/L (136-145); TRIGLYCERIDES LEVEL 80 MG/DL (<150)
[2022-11-23 09:41] LABS: HEMOGLOBIN A1c 5.1 % (4.0-6.0)
== END ==
LOC: M RAD 07:24
PROVIDERS: ATTEND Physician Assistant
DX: M25.551 Pain in right hip (principal); M25.552 Pain in left hip

== ENCOUNTER → 2022-11-23 | Outpatient (CLI) | payer BC | LOC: M LAB 07:26 | PROVIDERS: ATTEND Nurse Practitioner Family | DX: I49.9 Cardiac arrhythmia, unspecified (principal) ==

== ENCOUNTER → 2023-02-25 | Outpatient (CLI) | payer BC ==
[2023-02-25 09:37] LABS: HEMOGLOBIN A1c 5.2 % (4.0-6.0)
== END ==
LOC: M LAB 08:45
PROVIDERS: ATTEND Physician Assistant
DX: E11.9 Type 2 diabetes mellitus without complications (principal)

== ENCOUNTER → 2023-08-31 | Outpatient (CLI) | payer BC | LOC: M RAD 12:16 | PROVIDERS: ATTEND Psychiatry & Neurology Neurology | DX: M54.2 Cervicalgia (principal); R20.2 Paresthesia of skin; M79.602 Pain in left arm; M54.59 Other low back pain; M54.16 Radiculopathy, lumbar region; M48.02 Spinal stenosis, cervical region; M48.061 Spinal stenosis, lumbar region without neurogenic claudication ==

== ENCOUNTER → 2023-09-02 | Outpatient (CLI) | payer BC | LOC: M WUC 08:37 | PROVIDERS: ATTEND Physician Assistant | DX: M17.12 Unilateral primary osteoarthritis, left knee (principal) ==

== ENCOUNTER → 2023-11-23 | Outpatient (CLI) | payer BC ==
[2023-11-23 10:05] LABS: HEMATOCRIT 42.8 % (36.0-47.0); HEMOGLOBIN 13.7 g/dl (12.0-15.5); MEAN CORPUSCULAR HEMOGLOBIN 27.7 pg (27.0-33.0); MEAN CORPUSCULAR VOLUME 86.6 fl (80.0-96.0); PLATELET COUNT, AUTOMATED 280 10^3/uL (150-450); RED BLOOD COUNT 4.94 10^6/uL (4.00-5.40); WHITE BLOOD COUNT 8.6 10^3/uL (4.0-10.0)
[2023-11-23 10:12] LABS: HEMOGLOBIN A1c 7.9 % (4.0-6.0)
[2023-11-23 10:29] LABS: ALBUMIN 3.6 G/DL (3.2-5.2); ALKALINE PHOSPHATASE 105 U/L (46-116); ALT/SGPT 19 U/L (7.0-40); AST/SGOT 11 U/L (<34); BILIRUBIN,TOTAL 0.4 MG/DL (0.3-1.2); BLOOD UREA NITROGEN 19 MG/DL (9-23); CALCIUM LEVEL 9.6 MG/DL (8.5-10.1); CARBON DIOXIDE LEVEL 30 MMOL/L (20-31); CHLORIDE LEVEL 106 MMOL/L (98-107); CHOLESTEROL LEVEL 121 MG/DL (<200); CHOLESTEROL RISK RATIO 3.57 (<5); CREATININE FOR GFR 0.78 MG/DL (0.55-1.30); GLOMERULAR FILTRATION RATE > 60.0 (>51); GLUCOSE, FASTING 176 MG/DL (60-100); HDL CHOLESTEROL 33.8 MG/DL (>40); NON-HDL-C 87.2 MG/DL; POTASSIUM SERUM 4.4 MMOL/L (3.5-5.1); SODIUM LEVEL 141 MMOL/L (136-145); TOTAL PROTEIN 6.4 G/DL (5.7-8.2); TRIGLYCERIDES LEVEL 131 MG/DL (<150)
== END ==
LOC: M WUC 08:06
PROVIDERS: ATTEND Physician Assistant
DX: E11.9 Type 2 diabetes mellitus without complications (principal); E78.2 Mixed hyperlipidemia; I10 Essential (primary) hypertension

== ENCOUNTER → 2023-11-25 | Outpatient (CLI) | payer BC | LOC: M WUC 09:51 | PROVIDERS: ATTEND Psychiatry & Neurology Neurology | DX: M79.672 Pain in left foot (principal) ==

== ENCOUNTER → 2023-12-01 | Outpatient (CLI) | payer BC | LOC: M RAD 14:28 | PROVIDERS: ATTEND Internal Medicine Cardiovascular Disease | DX: I25.10 Atherosclerotic heart disease of native coronary artery without angina pectoris (principal); I10 Essential (primary) hypertension; E78.5 Hyperlipidemia, unspecified; R09.89 Other specified symptoms and signs involving the circulatory and respiratory systems ==

== ENCOUNTER → 2024-01-02 | Outpatient (CLI) | payer BC | LOC: M PLAIMG 06:44 | PROVIDERS: ATTEND Psychiatry & Neurology Neurology | DX: M54.50 Low back pain, unspecified (principal); M47.817 Spondylosis without myelopathy or radiculopathy, lumbosacral region; R20.2 Paresthesia of skin ==

== ENCOUNTER 2024-06-18 15:32 | Emergency (ER) | payer BC ==
[~2024-06-18] VITALS: Ht 167.6 cm; Wt 116.4 kg
[~2024-06-18 15:32] MED LIST changes: +BUPR-597 PO; -BUPR300T92 PO
[2024-06-18 15:33] VITALS: BP 180/94; TEMP 97.9; O2SAT 98
[2024-06-18] MEDS: FLUORESCEIN OPHTH 1MG STRIP OS ONE (17:40)
[2024-06-18] MEDS: PROPARACAINE 0.5% OPHTH SOL 15ML OS ONE (17:40)
== END 2024-06-18 18:15 | disposition home or self-care (01) ==
LOC: M ED 15:32
DX: H10.212 Acute toxic conjunctivitis, left eye (principal); Y92.009 Unspecified place in unspecified non-institutional (private) residence as the place of occurrence of the external cause; Y93.89 Activity, other specified; Y99.9 Unspecified external cause status; Z79.82 Long term (current) use of aspirin; Z79.02 Long term (current) use of antithrombotics/antiplatelets; Z79.4 Long term (current) use of insulin; Z79.811 Long term (current) use of aromatase inhibitors; Z79.899 Other long term (current) drug therapy; Z86.718 Personal history of other venous thrombosis and embolism

== ENCOUNTER → 2024-07-06 | Outpatient (CLI) | payer BC ==
[2024-07-06 14:04] LABS: THYROID STIMULATING HORMONE 1.545 uIU/ML (0.55-4.78)
[2024-07-06 14:06] LABS: FREE T4 1.07 NG/DL (0.89-1.76)
[2024-07-09 13:07] LABS: ANA SCREEN, IFA NEGATIVE (NEGATIVE)
[2024-07-10 11:53] LABS: ANTI-U1 RNP AB <1.0 NEG AI (<1.0 NEG); RNP ANTIBODY <1.0 NEG AI (<1.0 NEG); SM ANTIBODY <1.0 NEG AI (<1.0 NEG); SSA SJOGRENS A <1.0 NEG AI (<1.0 NEG); SSB SJOGRENS B <1.0 NEG AI (<1.0 NEG)
[2024-07-12 07:01] LABS: ANTI DS-DNA AB NEGATIVE (NEGATIVE)
== END ==
LOC: M WUC 09:06
PROVIDERS: ATTEND Ophthalmology
DX: H16.223 Keratoconjunctivitis sicca, not specified as Sjogren's, bilateral (principal)

== ENCOUNTER → 2024-07-06 | Outpatient (CLI) | payer BC ==
[2024-07-09 07:17] LABS: HEMOGLOBIN A1c 9.5 % (4.0-6.0)
== END ==
LOC: M WUC 09:11
PROVIDERS: ATTEND Physician Assistant
DX: E11.9 Type 2 diabetes mellitus without complications (principal)

== ENCOUNTER → 2024-09-14 | Day surgery (SDC) | payer BC ==
[~2024-09-14] VITALS: Ht 167.6 cm; Wt 114.3 kg
[~2024-09-14] MED LIST changes: +ARIP1TAB4 PO; +DULO1CAP6 PO; +GABA-1171 PO; +LIDOCAINE 2% 100MG/5ML SDV (FOR ANES.) As Ordered ONE; +ONDANSETRON 4MG 2ML VIAL As Ordered ONE; +ROSU40TA81 PO; +VITA200044 PO; +fentaNYL 100 MCG/2 ML INJECTION As Ordered ONE; +propofoL 200 MG/20 ML VIAL As Ordered ONE
[2024-09-14 08:36] VITALS: BP 119/59; O2SAT 96
== END | disposition home or self-care (01) ==
LOC: M OPP 06:47
PROVIDERS: ATTEND Surgery
DX: Z12.11 Encounter for screening for malignant neoplasm of colon (principal); K63.5 Polyp of colon; K57.30 Diverticulosis of large intestine without perforation or abscess without bleeding; K29.50 Unspecified chronic gastritis without bleeding; K21.00 Gastro-esophageal reflux disease with esophagitis, without bleeding; K22.70 Barrett's esophagus without dysplasia; K44.9 Diaphragmatic hernia without obstruction or gangrene; R13.10 Dysphagia, unspecified; K31.89 Other diseases of stomach and duodenum; Z87.19 Personal history of other diseases of the digestive system; Z80.0 Family history of malignant neoplasm of digestive organs; I10 Essential (primary) hypertension; E78.00 Pure hypercholesterolemia, unspecified; E11.40 Type 2 diabetes mellitus with diabetic neuropathy, unspecified; Z79.899 Other long term (current) drug therapy; Z79.82 Long term (current) use of aspirin; Z79.84 Long term (current) use of oral hypoglycemic drugs; J45.909 Unspecified asthma, uncomplicated; Z95.5 Presence of coronary angioplasty implant and graft; Z87.891 Personal history of nicotine dependence; Z88.8 Allergy status to other drugs, medicaments and biological substances
CPT/HCPCS: 43239; 45380; 88305; J2405; J3010

== ENCOUNTER → 2025-04-08 | Outpatient (CLI) | payer BC ==
[~2025-04-08] MED LIST changes: -BUPR-597 PO; +BUPR-766 PO; +LIDO1ADH93 TOP; -LIDO5DIS41 TOP; -LIDOCAINE 2% 100MG/5ML SDV (FOR ANES.) As Ordered ONE; -ONDANSETRON 4MG 2ML VIAL As Ordered ONE; +SEMA0.257 SQ; +TAMS-18 PO; -fentaNYL 100 MCG/2 ML INJECTION As Ordered ONE; -propofoL 200 MG/20 ML VIAL As Ordered ONE
[2025-04-08 12:42] LABS: PLATELET COUNT, AUTOMATED 286 10^3/uL (150-450)
[2025-04-08 13:06] LABS: ESTIMATED AVERAGE GLUCOSE 171.0 MG/DL (60-110)
[2025-04-08 13:20] LABS: ALT/SGPT 15.0 U/L (7.0-40); AST/SGOT 14.0 U/L (<34); CALCIUM LEVEL 10.3 MG/DL (8.3-10.6); CARBON DIOXIDE LEVEL 27.0 MMOL/L (20-31); CHLORIDE LEVEL 108.0 MMOL/L (98-107); CHOLESTEROL LEVEL 114.0 MG/DL (<200); CHOLESTEROL RISK RATIO 3.41 (<5); CREATININE FOR GFR 0.79 MG/DL (0.55-1.30); GLOMERULAR FILTRATION RATE 85.6 (>45); LDL CHOLESTEROL 51.6 MG/DL (<100); NON-HDL-C 80.6 MG/DL; POTASSIUM SERUM 3.9 MMOL/L (3.5-5.1); SODIUM LEVEL 145.0 MMOL/L (136-145); TRIGLYCERIDES LEVEL 145.0 MG/DL (<150)
== END ==
LOC: M WUC 08:38
PROVIDERS: ATTEND Physician Assistant
DX: E11.9 Type 2 diabetes mellitus without complications (principal); E78.2 Mixed hyperlipidemia; I10 Essential (primary) hypertension

== ENCOUNTER 2025-04-09 18:04 | Emergency (ER) | payer BC ==
[~2025-04-09] VITALS: Ht 167.6 cm; Wt 113.3 kg
[~2025-04-09 18:04] MED LIST changes: -SEMA0.257 SQ
[2025-04-09] MEDS ORDERED: SEMA0.257 SQ (18:24)
[2025-04-09 21:21] VITALS: BP 157/85; TEMP 97.8; O2SAT 99
== END 2025-04-09 21:22 | disposition home or self-care (01) ==
LOC: M ED 18:04
DX: S93.602A Unspecified sprain of left foot, initial encounter (principal); X58.XXXA Exposure to other specified factors, initial encounter; E11.9 Type 2 diabetes mellitus without complications; I10 Essential (primary) hypertension; F10.10 Alcohol abuse, uncomplicated; M19.90 Unspecified osteoarthritis, unspecified site; Y92.89 Other specified places as the place of occurrence of the external cause; Y93.89 Activity, other specified; Y99.0 Civilian activity done for income or pay; Z87.442 Personal history of urinary calculi; Z88.8 Allergy status to other drugs, medicaments and biological substances; Z79.82 Long term (current) use of aspirin; Z79.899 Other long term (current) drug therapy